=== PATIENT | male | born 1985 | race Caucasian/White ===

== ENCOUNTER 2020-11-01 07:32 | Emergency (ER) | payer SELFPAY ==
[2020-11-01 08:19] VITALS: BP 115/72; PULSE 75; RESP 16; TEMP 36.8; O2SAT 98; BMI 22.6
--- NOTE | 2020-11-01 08:31 | ED.GENADULT ---
HPI - General Adult General Chief complaint: Skin/Abscess/Foreign Body Stated complaint: cyst on buttock Time Seen by Provider: 11/01/20 08:20 Source: patient Mode of arrival: ambulatory Limitations: no limitations History of Present Illness HPI narrative: This is a 35 years old male presented to the emergency department with a chief complaint of abscess in the right perianal are x3 days there is no fever no chills no history of diabetes Onset (ago): day(s) (3) Location: pelvis (The abscess is localized to the below the right scrotum in the perianal area) Severity: moderate Pain Consistency: constant Relieving factors: none Related Data Allergies Allergy/AdvReac Type Severity Reaction Status Date / Time No Known Allergies Allergy Unverified 07/16/20 16:14 Review of Systems Review of Systems: There is no fever, no GI symptoms (no vomiting and no diarrhea) no urinary symptoms no dysuria Yes all other systems are reviewed and are negative ENT: Reports system reviewed and no additional complaints, except as documented Cardiovascular: Cardiovascular: Reports no additional cardiovascular complaints PMFSH Past Medical History Medical History No known health problems Social History Social History Advance Directives: No Advance Directives Information Provided: No Physical Exam Vital Signs: Vital Signs: Last Vital Signs Temp 98.2 F 11/01/20 08:19 Pulse 75 11/01/20 08:19 Resp 16 11/01/20 08:19 BP 115/72 11/01/20 08:19 Pulse Ox 98 11/01/20 08:19 Body Mass Index 22.6 Const: General: cooperative HENMT: Head: Yes normal to inspection Face and sinus: Yes normal facial exam Eyes: General: appearance normal, both eyes and all related structures Neck: Neck: Yes normal visual inspection Chest: Chest palpation & inspection: normal inspection of the chest and normal palpation of entire chest wall Resp: Effort & Inspection: normal respiratory effort Cardio: Rate: regular rate GI: Inspection: Yes normal to inspection Rectal Exam - Male: Yes deferred Skin: Other: Just below the scrotum in the right perianal area there is a large abscess of about 4 x 4 cm with fluctuance Procedures Procedure Narrative Procedure Narrative: Under local anesthesia with 1% lidocaine both wrists CC an incision was perform a in the right perianal abscess large amount of pus was obtained, the wound was packed. Patient tolerated the procedure well. Discharge Plan Discharge Clinical Impression: Abscess of skin or subcutaneous tissue Patient Disposition: Home, Self-Care Instructions: Abscess Incision and Drainage (DC) Additional Instructions: Please follow-up with surgery due to Cherise, call tomorrow to make a follow-up appointment. Return to the emergency room review of fever chills vomiting or any concern. You could take ibuprofen 600 mg every 8 hours as needed for pain Referrals: Zenaida Scales MD [Physician] - 2 days Stand Alone Forms: Work/School Release Interventions: ED Discharge Assessment Last Done: 11/01/20 09:24 Discharge Date/Time: 11/01/20 09:24
[2020-11-01] MEDS: Lidocaine HCl 1 % MPF 5 ML VIAL INFILTRATI (09:09)
[2020-11-01] MEDS: Ibuprofen 800 MG TABLET PO (09:09)
== END 2020-11-01 09:24 | disposition home or self-care (01) ==
PROVIDERS: Emergency Provider Emergency Medicine
DX: K61.0 Anal abscess (principal)
CPT/HCPCS: 46050; 87071; 87147; 87186; 87205; 99283

== ENCOUNTER 2022-06-30 15:24 | Emergency (ER) | payer SELFPAY ==
[2022-06-30 15:31] VITALS: BP 114/66; PULSE 60; RESP 19; TEMP 36.6; O2SAT 98; BMI 24.2
--- NOTE | 2022-06-30 17:59 | ED_ITS ---
HPI - General Adult General Chief complaint: Back Pain/Injury Stated complaint: lower back pain Time Seen by Provider: 06/30/22 17:59 Source: patient Mode of arrival: ambulatory Limitations: no limitations History of Present Illness HPI narrative: Patient is a 37 year old male presenting to the emergency department today with low back pain. Patient states that he carried a washed into the basement and is now having a sore low back. Patient denies any numbness, tingling, dizziness, lightheadedness, abdominal pain, nausea, vomiting, fever, chills, blurry vision, double vision, loss of vision, chest pain, difficulty breathing, shortness of breath, night sweats, pain with urination, increased urinary frequency, increased urinary urgency, blood in his urine or stool, syncope or a near syncopal episode, recent trauma or falls, bowel incontinence, bladder incontinence, bowel retention, bladder retention, or any other complaints at this time. Onset (ago): hour(s) Location: back Radiation: non-radiation Severity: mild Severity scale (1-10): 2 Quality: dull Pain Consistency: constant Relieving factors: none Exacerbating factors: none Associated symptoms: denies other symptoms Treatments prior to arrival: none Related Data Previous Rx's Medication Instructions Recorded cyclobenzaprine 5 mg tablet 5 mg PO TID PRN back pain 7 days 06/30/22 #21 tabs Allergies Allergy/AdvReac Type Severity Reaction Status Date / Time No Known Allergies Allergy Unverified 07/16/20 16:14 Review of Systems Constitutional: Constitutional: Reports no additional constitutional complaints, Denies chills, Denies fever(s) and Denies night sweats Eyes: Eyes: Reports no additional eye complaints, Denies blurry vision, Denies change in vision, Denies diplopia, Denies eye discharge, Denies loss of vision and Denies eye pain ENT: Denies dizziness Cardiovascular: Cardiovascular: Reports no additional cardiovascular complaints, Denies chest pain, Denies lightheadedness, Denies Loss of Consciousness and Denies dyspnea Respiratory: Respiratory: Reports no additional respiratory complaints and Denies dyspnea Gastrointestinal: Gastrointestinal: Reports no additional gastrointestinal complaints, Denies abdominal pain, Denies melena, Denies hematochezia, Denies change in bowel habits and Denies change in stool character Genitourinary: Genitourinary: Reports no additional male genitourinary complaints, Denies hematuria, Denies oliguria, Denies difficulty urinating, Denies dysuria, Denies urinary frequency, Denies urinary hesitancy, Denies urinary incontinence and Denies urinary urgency Musculoskeletal: Musculoskeletal: Reports no additional musculoskeletal complaints, Reports back pain, Denies numbness and Denies tingling Neurologic: Denies dizziness, Denies loss of vision, Denies numbness and Denies tingling Psychiatric: Psychiatric: Reports no additional psychiatric complaints Endocrine: Endocrine: Reports no additional endocrine complaints Hematologic/Lymphatic: Hematologic/Lymphatic: Reports no additional hematologic/lymphatic complaints Allergic/Immunologic: Allergic/Immunologic: Reports no additional allergic/immunologic complaints [facility] Past Medical History Attestation statement: The following information was validated with the patient. Source: old records reviewed Medical History No known health problems Social History Social History Advance Directives: No Advance Directives Information Provided: No Physical Exam ED Vital Signs: Vital Signs - 24 hr 06/30/22 15:31 Temperature 98 F Pulse Rate 60 Respiratory Rate 19 Blood Pressure 114/66 Pulse Oximetry 98 Oxygen Delivery Method Room Air BMI result Body Mass Index 24.2 Const General: cooperative, no acute distress, alert and awake Nutritional Appearance: well nourished Orientation/consciousness: patient oriented x3 Limitations: no limitations HENMT Head: Yes normal to inspection and Yes atraumatic Ears: hearing grossly normal bilaterally and external ears normal General nose exam: Normal external nose present, no nasal discharge noted and no epistaxis Face and sinus: Yes normal facial exam, No abrasion and No laceration Mouth: Normal oral and palatal mucosa present, no drooling and no muffled voice Eyes General: appearance normal, both eyes and all related structures Periorbital: periorbital findings normal Eyelids: Yes eyelids normal Conjunctivae: conjunctivae normal Pupils: Equal, round and reactive pupils present EOM: EOMs intact bilaterally Neck Neck: Yes normal visual inspection, Yes full ROM and Yes no lymphadenopathy Chest Chest palpation & inspection: normal inspection of the chest Resp Effort & Inspection: normal respiratory effort and able to speak in complete sentences Auscultation: clear to auscultation bilaterally Cardio Rate: regular rate Rhythm: regular rhythm GI Inspection: Yes normal to inspection General: Yes no CVA tenderness Back/Spine/Pelvis Back: no CVA tenderness Cervical Spine: normal cervical lordosis and cervical ROM normal Thoracic/Lumbar Spine: thoracic and lumbar spine normal to inspection and thoraco-lumbar ROM normal Pelvis: no pain with anterior-posterior compression Neuro General: patient oriented x3 and moves all extremities Cranial nerves: Yes Equal, round and reactive pupils present Cognition (Neuro): normal cognition Motor exam (neuro): 5/5 motor strength present throughout Sensory Exam: Normal double simultaneous stimulation for sensation Coordination: [id number] test normal Extrem General: Yes normal to inspection, Yes full ROM and Yes capillary refill normal Psych Appearance: grossly normal Mental Status: mental status grossly normal Affect: normal affect Attitude: cooperative Thought process: Normal thought process present Thought content: Normal thought content present Insight: Good insight present (Psych) Medical Decision Making MDM Narrative Medical decision making narrative: Patient is a 37 year old male presenting to the emergency department today with low back pain. Patient's physical exam was unremarkable. I explained my physical exam findings to the patient. I answered all questions asked by the patient. Patient received IM Toradol and PO Flexeril which he stated helped his symptoms significantly. I stressed the importance of the patient taking his medication as prescribed. I stressed the importance of the patient following up with his primary care provider and if the pain persists for more than 1 week, following up with a development disability specialist. I stressed the importance of the patient returning t o the emergency department immediately if his symptoms were to worsen or if he were to develop any dizziness, shortness of breath, difficulty breathing, chest pain, blurry vision, loss of vision, nausea, vomiting, abdominal pain, fever, chills, back pain, or any other complaints. Patient verbalized agreement and understanding with this treatment plan and discharge. Differential Diagnosis Differential Diagnosis: back pain, lumbar strain Medical Records Medical records reviewed: Yes I reviewed the patient's medical records. Discharge Plan Discharge Clinical Impression: Strain of lumbar region Patient Disposition: Home, Self-Care Instructions: Acute Low Back Pain (ED) Additional Instructions: Follow up with your primary care provider. If pain persists longer than 1 week, follow up with a development disability specialist. Return to the emergency department immediately if your symptoms worsen or if you develop any dizziness, shortness of breath, difficulty breathing, chest pain, blurry vision, loss of vision, nausea, vomiting, abdominal pain, fever, chills, back pain, or any other complaints. Prescriptions: New cyclobenzaprine 5 mg tablet 5 mg PO TID PRN (Reason: back pain) 7 Days Qty: 21 0RF Referrals: [facility] [Provider Group] Carlie Lorenzo MD [Physician] - (Follow up with your primary care provider. ) Stand Alone Forms: Work/School Release Print Language: Albanian
[2022-06-30] MEDS: Ketorolac Tromethamine 15 MG/ML VIAL IM (18:41)
[2022-06-30] MEDS: Cyclobenzaprine HCl 5 MG TABLET PO (18:41)
== END 2022-06-30 18:56 | disposition home or self-care (01) ==
PROVIDERS: Emergency Provider Emergency Medicine Emergency Medical Services
DX: S39.012A Strain of muscle, fascia and tendon of lower back, initial encounter (principal); X50.0XXA Overexertion from strenuous movement or load, initial encounter; Y93.E2 Activity, laundry; Y92.018 Other place in single-family (private) house as the place of occurrence of the external cause; Y99.9 Unspecified external cause status
CPT/HCPCS: 96372; 99282; 99284; J1885

== ENCOUNTER 2023-05-10 12:09 | Emergency (ER) | payer SELFPAY ==
--- NOTE | ~2023-05-10 | XR_ITS ---
EXAMINATION: XR LUMBOSACRAL SPINE CLINICAL INFORMATION: Fell onto right side while playing basketball 3 days ago COMPARISON: CT abdomen pelvis 10/16/2019 TECHNIQUE: Three views of the lumbosacral spine. FINDINGS: There is mild grade 1 anterolisthesis of L5 upon S1. Bilateral pars defects are seen at L5, unchanged compared with the 2019 CT scan. Vertebral body heights and disc spaces are well maintained with the exception of some minimal narrowing at L4-L5 which has progressed slightly since 2019. The vertebral bodies and posterior elements otherwise are normal. The remainder of the disc spaces are preserved and the vertebral alignment is normal. The paraspinal soft tissues are normal. XR/XR lumbar spine 2-3V IMPRESSION: 1. Bilateral pars defects at L5 with mild grade 1 anterolisthesis of L5 upon S1. 2. Mild disc space narrowing at L4-L5.
--- NOTE | ~2023-05-10 | XR_ITS ---
EXAMINATION: XR RIBS, RIGHT CLINICAL INFORMATION: Pain after fall onto right side 3 days ago COMPARISON: 12/26/2013 TECHNIQUE: 3 views of the right ribs were obtained. FINDINGS: Heart, mediastinum, pulmonary vessels and lung harmon within normal limits. No pneumothorax or pleural effusions. BB is placed in the lower right rib cage were mildly displaced sixth and possibly nondisplaced seventh rib fractures are seen. XR/XR ribs RT min 3V w CXR1V IMPRESSION: Right sixth and possibly seventh rib fractures.
[2023-05-10 12:34] VITALS: BP 122/75; PULSE 69; RESP 16; TEMP 36.6; O2SAT 98; BMI 29.1
[2023-05-10 13:54] VITALS: BP 122/74; PULSE 74; RESP 19; TEMP 36.6; O2SAT 99
--- NOTE | 2023-05-10 14:25 | ED_ITS ---
HPI - Fall General Chief Complaint: Fall Stated Complaint: L rib pain/Lower back pain Time Seen by Provider: 05/10/23 13:55 Source: patient, RN notes reviewed and old records reviewed Mode of arrival: ambulatory History of Present Illness HPI Narrative: 37-year-old male with no significant past medical history presenting to the ED complaining of right-sided rib pain, and left-sided low back pain radiating down left lower extremity with associated paresthesias x 3 days s/p mechanical trip and fall while playing basketball with his son. Reports fell forward onto right ribs. Reports pain worse with movement, palpation, and deep breathing. States pain now radiating across to left side and down lower extremity. Denies numbness, weakness, urinary incontinence/retention, fever/chills, abdominal pain MD complaint: fall Onset (ago): day(s) Related Data Previous Rx's Medication Instructions Recorded cyclobenzaprine 5 mg tablet 5 mg PO TID PRN back pain 7 days 06/30/22 #21 tabs acetaminophen 500 mg tablet 500 mg PO Q6H PRN fever or pain 05/10/23 (Tylenol Extra Strength) #14 tabs cyclobenzaprine 5 mg tablet 5 mg PO Q8H PRN pain (scale score 05/10/23 7-10) 5 days #14 tabs lidocaine 5 % topical patch 1 patch topical DAILY PRN pain #30 05/10/23 (Lidoderm) ea naproxen 500 mg tablet 500 mg PO BID PRN pain 10 days #20 05/10/23 tabs Allergies Allergy/AdvReac Type Severity Reaction Status Date / Time No Known Allergies Allergy Unverified 05/10/23 12:34 Review of Systems Review of Systems: Constitutional: No Fever, No Chills ENT/Mouth: No Ear Pain, No Nasal Congestion, No sore throat, No Rhinorrhea, No Swallowing Difficulty Cardiovascular: + Chest Wall Pain, No SOB Respiratory: No Cough, No Sputum, No Wheezing Gastrointestinal: No Nausea, No Vomiting, No Abdominal pain Genitourinary: No Dysuria, No Urinary Frequency, No Hematuria, No Urinary Incontinence/retention, No Urgency, No Flank Pain Musculoskeletal: + joint pain, No Myalgias, No Joint Swelling Skin: No Skin Lesions, No rash Neuro: No Weakness, No Numbness, + Paresthesias Yes all other systems are reviewed and are negative Constitutional: Constitutional: Reports as per [facility] Past Medical History Attestation statement: The following information was validated with the patient. Source: old records reviewed Medical History No known health problems Social History Social History Advance Directives: No Advance Directives Information Provided: No Physical Exam Vital Signs: Vital Signs: Last Vital Signs Temp 97.9 F 05/10/23 13:54 Pulse 74 05/10/23 13:54 Resp 19 05/10/23 13:54 BP 122/74 05/10/23 13:54 Pulse Ox 99 05/10/23 13:54 O2 Del Method Room Air 05/10/23 13:54 BMI result Body Mass Index 29.1 Const: General: cooperative, healthy appearing and no acute distress Orientation/consciousness: patient oriented x3 Limitations: no limitations HEENT: Head: Yes normal to inspection and Yes atraumatic Ears: hearing grossly normal bilaterally General nose exam: Normal external nose present Face and sinus: Yes normal facial exam Eyes: General: appearance normal, both eyes and all related structures EOM: EOMs intact bilaterally Neck: Neck: Yes normal visual inspection and Yes no meningeal signs Chest: Other: + right-sided anterior lateral lower rib tenderness to palpation reproducing subjective complaint. No erythema/ecchymosis or flail chest. No crepitus. Chest palpation & inspection: normal inspection of the chest, no crepitus and tenderness Resp: Effort & Inspection: normal respiratory effort and no respiratory distress Auscultation: clear to auscultation bilaterally Cardio: Rate: regular rate Heart sounds: S1 normal heart sound present and S2 normal heart sound present GI: Inspection: Yes normal to inspection Palpation (GI): Soft to palpation, nontender, no guarding and not rigid : General: Yes no CVA tenderness Back/Spine/Pelvis: Other: No midline cervical/thoracic/lumbar spinous tenderness/step-off or deformity Back: no CVA tenderness Skin: Rashes: no rashes Wounds: no wounds Neuro: Other: Strength intact throughout. No saddle anesthesia. Sensation intact to light touch. Neurovascular intact distally General: patient oriented x3, gait normal, tone normal, moves all extremities, no meningeal signs and no focal motor deficits Gait exam (Neuro): Normal gait present Motor exam (neuro): 5/5 motor strength present throughout Extrem: General: Yes normal to inspection Course Course Course Narrative: XR ribs RT min 3V w CXR1V IMPRESSION: Right sixth and possibly seventh rib fractures. ? XR lumbar spine 2-3V IMPRESSION: 1.? Bilateral pars defects at L5 with mild grade 1 anterolisthesis of L5 upon S1. 2.? Mild disc space narrowing at L4-L5. Results discussed with patient including worrisome signs and symptoms and strict return precautions, and when to return to the emergency department. They verbalized understanding and feel safe for discharge at this time. Medical Decision Making Medical Decision Making [facility] Narrative: 37-year-old male with no significant past medical history presenting to the ED complaining of right-sided rib pain, and left-sided low back pain radiating down left lower extremity with associated paresthesias x 3 days s/p mechanical trip and fall while playing basketball with his son. On exam vital signs stable, NAD, nontoxic appearing, physical exam as noted above. No midline spinous tenderness through or red flag symptoms. Reproducible right sided anterior lateral rib tenderness. Abdomen soft/nontender. Concern for rib fracture versus contusion vs MSK pain/strain vs sciatica or herniated disc. Low concern for intra-abdominal bleeding/hematoma. Lower suspicion for spine fracture, cauda equina/cord compression or epidural abscess Plan: X-rays, pain control Please refer to course for remaining clinical decision making, interpretation of labs/imaging results, and discussions with consultants and/or family members. Differential Diagnosis Differential Diagnoses: The differential diagnosis associated with the presentation includes As above Lab Data [facility] Lab Attestation statement: I reviewed the patient's lab results. Radiology Impression Discussion of test interpretation with radiology: I have reviewed the radiologist's reading. External Record Review External record reviewed: Inpatient record, Office record, Outpatient record, Prior outpatient labs, Prior outpatient radiology, Primary care record and Outside ED record Tests considered The following testing was considered but not selected: As above Prescription Management I considered prescription management with: Pain Medication Discharge Plan Discharge Clinical Impression: Multiple rib fractures, Narrowing of lumbar intervertebral disc space Patient Disposition: Home, Self-Care Instructions: Rib Fracture (ED), Acute Low Back Pain (ED) Additional Instructions: You have a mildly displaced fracture of your right 6th rib, and a nondisplaced fracture of your 7th rib Your x-ray of her back does show some disc narrowing Please follow-up with your PCP and a assistance specialist Flexeril is a muscle relaxer, take at night as it makes you drowsy, do not drive, drink alcohol, or operate machinery while taking it Naproxen as an anti-inflammatory / pain medication, take with food Lidoderm patches are numbing patches, apply to painful area In addition take Tylenol at home If symptoms persist or worsen, pain becomes unbearable, you developed urinary retention or incontinence, or weakness return to the ED Prescriptions: New acetaminophen [Tylenol Extra Strength] 500 mg tablet 500 mg PO Q6H PRN (Reason: fever or pain) Qty: 14 0RF lidocaine [Lidoderm] 5 % adhesive patch,medicated 1 patch topical DAILY MDD remove after 12 hours PRN (Reason: pain) Qty: 30 0RF Rx Instructions: leave on most painful area for up to 12 hrs naproxen 500 mg tablet 500 mg PO BID PRN (Reason: pain) 10 Days Qty: 20 0RF cyclobenzaprine 5 mg tablet 5 mg PO Q8H PRN (Reason: pain (scale score 7-10)) 5 Days Qty: 14 0RF No Action cyclobenzaprine 5 mg tablet 5 mg PO TID PRN (Reason: back pain) 7 Days Qty: 21 0RF Referrals: [facility] [Provider Group] [facility] [Outside] Aisha Tracy MD [Physician] - Dell Boo MD, PhD [Physician] - Physician,None [Primary Care Provider] - 5 days Stand Alone Forms: Work/School Release
[2023-05-10] MEDS: Ketorolac Tromethamine 30 MG/ML VIAL IM (14:55)
[2023-05-10] MEDS: Lidocaine 4 % Patch ADH..PATCH 1 PATCH TRANSDERMA (14:55)
[2023-05-10 15:01] VITALS: BP 144/81; PULSE 82; RESP 18; TEMP 36.8; O2SAT 97
== END 2023-05-10 15:04 | disposition home or self-care (01) ==
PROVIDERS: Emergency Provider Emergency Medicine
DX: S22.41XA Multiple fractures of ribs, right side, initial encounter for closed fracture (principal); W01.0XXA Fall on same level from slipping, tripping and stumbling without subsequent striking against object, initial encounter; M48.061 Spinal stenosis, lumbar region without neurogenic claudication; Y93.67 Activity, basketball; Y92.9 Unspecified place or not applicable; Y99.9 Unspecified external cause status
CPT/HCPCS: 71101; 72100; 96372; 99284; J1885

== ENCOUNTER 2025-06-14 00:25 | Emergency (ER) | payer SELFPAY ==
[2025-06-14 00:55] VITALS: BP 132/89; PULSE 99; RESP 16; TEMP 36.9; O2SAT 98; BMI 28.2
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
[2025-06-14 02:41] VITALS: BP 128/82; PULSE 86; RESP 16; TEMP 36.9; O2SAT 98
== END 2025-06-14 02:42 | disposition home or self-care (01) ==
PROVIDERS: Emergency Provider Emergency Medicine
DX: S60.511A Abrasion of right hand, initial encounter (principal); Y04.8XXA Assault by other bodily force, initial encounter; Y93.9 Activity, unspecified; Y92.9 Unspecified place or not applicable; Y99.8 Other external cause status
CPT/HCPCS: 99282; 99284